=== PATIENT | female | born 1965 | race Caucasian/White ===

== ENCOUNTER 2017-11-29 01:35 | Emergency (ER) | payer OTHER, SELFPAY ==
[2017-11-29 01:36] VITALS: BP 150/76; PULSE 61; RESP 17; TEMP 36.4; O2SAT 98; BMI 29.2
[2017-11-29] MEDS: HYDROcodone Bitartrate/Apap 5/325 Tablet PO (01:52)
--- NOTE | 2017-11-29 01:58 | RAD_ITS ---
STUDY: X-RAY - CERVICAL SPINE REASON FOR EXAM: Female, 52 years old. Neck pain TECHNIQUE: 4 view(s) of the cervical spine were obtained. COMPARISON: None FINDINGS: Normal anterior atlantoaxial articulation. Normal odontoid process. Normal cervical lordosis. There is postoperative change from C6 to C7 anterior spinal fusion with anterior fixation plate and intrabody bone screws in place. No vertebral body or posterior element fracture. There is mild to moderate nonuniform joint space narrowing of bilateral uncovertebral joints from C3 through through C6. Mild loss of height at the C5-C6 intervertebral disc space. RAD/Cerv Spine 2 or 3 Views IMPRESSION: 1. Mild degenerative disc and mild to moderate degenerative joint disease of the cervical spine. 2. Postoperative change from C6 to C7 anterior spinal fusion. Electronically Signed: Luis Reddy MD at 3:08 EST Tel , Service support ,
--- NOTE | 2017-11-29 03:20 | ED.DCSUM_ITS ---
- ER Visit Summary Date of Service: 11/29/17 Chief Complaint: Neck pain History of Present Illness: The patient is a 52 F with diffuse neck pain for several weeks. The patient felt a snap in her neck today. This was concerning to her. She has a history of neck pain and had a prior cervical fusion. She is planning to have an outpatient MRI. Her only other associated symptom is finger numbness bilaterally. This is not a new finding for her. She denies fever or any other symptoms. Denies any injury. Physical Examination: Patient is afebrile and vital signs are unremarkable. She has diffuse cervical tenderness to palpation. Skin appears normal. No warmth or erythema. Arms have good pulses. She does report subjective paresthesias in her hands. Good strength and range of motion. Test Results: X-rays unremarkable. Emergency Department Course and Treatment: Patient had pain medicine and muscle relaxers. X-rays unremarkable. She will be discharged with a short course of pain medicine. Follow-up with her doctor and have her imaging as scheduled. Treatment Plan: As above Disposition: Discharged Impression: 1. Neck pain This note was generated with [employer] dictation software. It may contain incorrect words, spelling, and punctuation that were not noted in review of the chart prior to signing ED Disposition - Plan for ED Patient: Chief Complaint: Other, Pain/Inj Referrals: Surinder Richardson [Primary Care Provider] -
--- NOTE | 2017-11-29 03:20 | ED.DEP ---
ED Disposition - Plan for ED Patient: Chief Complaint: Other, Pain/Inj Instructions: ED Neck Pain No Trauma Prescriptions: Hydrocodone Bitart/Apap 5-325 [[place] 5/325] 1 tab PO Q6H PRN PRN 3 Days #12 tab PRN Reason: Pain Referrals: Surinder Richardson [Primary Care Provider] -
[2017-11-29 03:36] VITALS: BP 142/60; PULSE 72; RESP 16
== END 2017-11-29 03:37 | disposition home or self-care (01) ==
PROVIDERS: Emergency Provider Emergency Medicine
DX: M54.2 Cervicalgia (principal); R20.0 Anesthesia of skin; R20.2 Paresthesia of skin; Z98.1 Arthrodesis status; Z87.39 Personal history of other diseases of the musculoskeletal system and connective tissue; Z90.89 Acquired absence of other organs; Z90.710 Acquired absence of both cervix and uterus; Z79.84 Long term (current) use of oral hypoglycemic drugs; Z79.899 Other long term (current) drug therapy; Z72.0 Tobacco use
CPT/HCPCS: 72040; 99283

== ENCOUNTER → 2017-12-09 10:07 | Outpatient (CLI) | payer OTHER, SELFPAY ==
--- NOTE | 2017-12-09 10:15 | MRI_ITS ---
STUDY: MRI CERVICAL SPINE WITH AND WITHOUT CONTRAST REASON FOR EXAM: Female, 52 years old. Neck pain with tingling in the right fingers and arm for 3 months. History of cervical surgery on May 04, 2017 TECHNIQUE: Standardized fat and water weighted pulse sequences were obtained in the sagittal and axial following I.V. administration of 7 ml of Gadavist contrast material. COMPARISON: MRI of the cervical spine on May 06, 2017 FINDINGS: Normal foramen magnum and brainstem-cervical cord junction. Normal craniovertebral junction. Normal anterior atlantoaxial articulation. Normal odontoid process. There is straightening of the normal cervical lordosis. Normal vertebral bodies and posterior osseous elements. C2-3: Normal endplates. Normal disc height, signal and morphology. Normal central canal and intervertebral neural foramina. C3-4: Normal endplates. Normal disc height, signal and morphology. Normal central canal and intervertebral neural foramina. C4-5: Normal endplates. There is an annular bulge. There is minimal anterolisthesis. Normal central canal and intervertebral neural foramina. C5-6: Normal endplates. Normal disc height, signal and morphology. Normal central canal and intervertebral neural foramina. C6-7: Status post anterior fusion since the last examination. Normal central canal and intervertebral neural foramina. C7-T1: Normal endplates. Normal disc height, signal and morphology. Normal central canal and intervertebral neural foramina. Normal cervical cord. Normal visualized soft tissue structures. MRI/Spine Cervical W/WO Contrast IMPRESSION: C4-5 annular bulge with minimal anterolisthesis unchanged since last examination. Status post anterior fusion at C6-7 since the last examination, uncomplicated Electronically Signed: Bhaskar Encarnacion MD, FACR at 11:52 EST , Service support ,
== END ==
DX: M50.20 Other cervical disc displacement, unspecified cervical region (principal)
CPT/HCPCS: 72156; A9585

== ENCOUNTER 2018-02-09 19:32 | Emergency (ER) | payer OTHER, SELFPAY ==
[2018-02-09 19:33] VITALS: BP 134/72; PULSE 57; RESP 18; TEMP 36.7; O2SAT 95; BMI 31.5
--- NOTE | 2018-02-09 19:44 | NURSING ---
CALLED [facility] @ 320
--- NOTE | 2018-02-09 20:34 | RAD_ITS ---
STUDY: X-RAY - CERVICAL SPINE REASON FOR EXAM: Female, 52 years old. Pain. Trauma. TECHNIQUE: 3 view(s) of the cervical spine were obtained. COMPARISON: None FINDINGS: Normal anterior atlantoaxial articulation. Normal odontoid process. Normal cervical lordosis. Previous surgical fixation between C6 and C7. Satisfactory appearance of an anterior buttress plate. Otherwise disc space heights. The soft tissue structures are unremarkable. There is no demonstrated fracture of the cervical spine. RAD/Cerv Spine 2 or 3 Views IMPRESSION: Postsurgical changes and no acute abnormality. Electronically Signed: Joe Berumen MD at 21:10 EDT , Service support ,
[2018-02-09] MEDS: oxyCODONE 5 MG Tablet PO (20:39)
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
[2018-02-09 21:44] VITALS: RESP 16
[2018-02-09 21:48] VITALS: BP 134/71; PULSE 56; RESP 14; O2SAT 95
--- NOTE | 2018-02-09 21:51 | ED.RN ---
REVIEWED D/C INSTRUCTIONS, FOLLOW UP CARE, AND S/S THAT WOULD WARRANT A RETURN TO THE ED WITH PT. PT VERBALIZED AN UNDERSTANDING AND DENIES FURTHER QUESTIONS FOR THIS RN. PT SKIN P/W/D, RESP EVEN AND UNLABORED, PT A&O X 3, NO DISTRESS NOTED. PT AMBULATED OUT OF ED, GAIT STEADY.
== END 2018-02-09 21:52 | disposition home or self-care (01) ==
PROVIDERS: Emergency Provider Emergency Medicine
DX: S10.93XA Contusion of unspecified part of neck, initial encounter (principal); R20.2 Paresthesia of skin; W50.0XXA Accidental hit or strike by another person, initial encounter; Y93.9 Activity, unspecified; Y92.9 Unspecified place or not applicable; E11.9 Type 2 diabetes mellitus without complications; E78.00 Pure hypercholesterolemia, unspecified; Z90.89 Acquired absence of other organs; Z90.710 Acquired absence of both cervix and uterus; Z79.84 Long term (current) use of oral hypoglycemic drugs; Z79.899 Other long term (current) drug therapy; Z72.0 Tobacco use
CPT/HCPCS: 72040; 99284; A4216

== ENCOUNTER → 2018-08-13 07:42 | Emergency (ER) | payer OTHER, SELFPAY ==
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
== END ==
DX: Z53.21 Procedure and treatment not carried out due to patient leaving prior to being seen by health care provider (principal)
CPT/HCPCS: A4216

== ENCOUNTER 2019-02-14 01:43 | Emergency (ER) | payer MEDICAID, SELFPAY ==
[2019-02-14 01:43] VITALS: BMI 29.2
[2019-02-14 01:44] VITALS: BP 163/74; PULSE 57; RESP 16; TEMP 36.5; O2SAT 99; BMI 24.7
--- NOTE | 2019-02-14 02:47 | ED.VISSUMM ---
- ER Visit Summary Date of Service: 02/14/19 Chief Complaint: Back pain History of Present Illness: The patient is a 53 F who presents with back pain. It is been present since yesterday. She does have a history of prior neck surgery. She does not normally have lower back pain. She cannot identify any fall or traumatic injury. She denies any numbness tingling radiation to the legs. No fevers or abdominal pain. No urinary retention or fecal incontinence. No weakness. Physical Examination: Afebrile vitals normal except blood pressure 163/74 Heart regular rate No respiratory distress Abdomen soft Patient has paraspinal lumbar tenderness Negative straight leg raise bilaterally 2+ dorsalis pedis pulses Brisk capillary refill 5 out of 5 dorsiflexion, plantarflexion, extensor hallucis longus Test Results: Not indicated Emergency Department Course and Treatment: Presentation consistent with lumbosacral strain. She was given a [place] here as well as a prescription for short course of the same. She was also given a prescription for naproxen. She was discharged to follow-up as an outpatient. Treatment Plan: [] Disposition: Discharge Impression: Lumbosacral strain This note was generated with [employer] dictation software. It may contain incorrect words, spelling, and punctuation that were not noted in review of the chart prior to signing ED Disposition - Plan for ED Patient: Referrals: Surinder Richardson MD [Primary Care Provider] -
--- NOTE | 2019-02-14 02:49 | ED.DEP ---
ED Disposition - Plan for ED Patient: Instructions: ED Sprain Strain Lumbar Prescriptions: Hydrocodone Bitart/Apap 5-325 [[place] 5MG-325MG] 1 tab PO Q6H PRN PRN 3 Days #10 tab PRN Reason: Pain Naproxen [Naprosyn] 500 mg PO BID #20 tab Referrals: Surinder Richardson MD [Primary Care Provider] -
[2019-02-14] MEDS: HYDROcodone Bitartrate/Apap 5/325 Tablet PO (03:03)
== END 2019-02-14 03:07 | disposition home or self-care (01) ==
PROVIDERS: Emergency Provider Emergency Medicine
DX: S39.012A Strain of muscle, fascia and tendon of lower back, initial encounter (principal); X58.XXXA Exposure to other specified factors, initial encounter; Y93.9 Activity, unspecified; Y92.9 Unspecified place or not applicable; E11.9 Type 2 diabetes mellitus without complications; I10 Essential (primary) hypertension; Z79.84 Long term (current) use of oral hypoglycemic drugs; Z79.899 Other long term (current) drug therapy; Z72.0 Tobacco use
CPT/HCPCS: 99283

== ENCOUNTER → 2020-01-19 10:01 | Outpatient (CLI) | payer MEDICAID, SELFPAY ==
--- NOTE | 2020-01-19 10:04 | US_ITS ---
STUDY: ABDOMINAL ULTRASOUND - RIGHT UPPER QUADRANT REASON FOR VISIT: Female, 54 years old RUQ PAIN TECHNIQUE: Ultrasound evaluation of the right upper quadrant was performed with real-time and static montelongo-scale imaging. TECHNICAL QUALITY: Adequate. COMPARISON: None. FINDINGS: Liver: The liver measures 14.4 cm. There is increased echogenicity consistent with fatty infiltration. The bile ducts are within normal limits. There is hepatic color flow. The direction of portal flow is hepatopetal. There is no demonstrated mass lesion. Gallbladder: Normal distended gallbladder. The gallbladder wall measures 1.7 mm. There is a negative sonographic Saeed''s sign. There is no pericholecystic fluid. There are no gallstones. Common Bile Duct (C.B.D.): The common bile duct measures 5.2 mm. Pancreas: Normal size of the head, body and tail of the pancreas. There is normal echogenicity of the pancreas. There is no demonstrated pancreatic mass or cyst. Right Kidney: Normal size of the right kidney. The right kidney measures 11.2 cm x 5.5 cm x 3.9 cm. Normal renal cortex. The right cortex measures 1.2 cm. There is no demonstrated renal mass or cyst. There is no right hydronephrosis. US/Abdomen Limited IMPRESSION: Fatty infiltration of the liver. Electronically Signed: Adán Abdi, at 10:54 EDT , Service support ,
== END ==
DX: R10.11 Right upper quadrant pain (principal)
CPT/HCPCS: 76705

== ENCOUNTER 2023-08-19 11:20 | Emergency (ER) | payer OTHER, SELFPAY ==
[2023-08-19 11:21] VITALS: TEMP 36.3; BMI 23.7
[2023-08-19 11:25] VITALS: BP 135/105; PULSE 57; RESP 16; O2SAT 97
--- NOTE | 2023-08-19 11:43 | RAD_ITS ---
STUDY: X-RAY CHEST REASON FOR EXAM: Female, 58 years old. Weakness TECHNIQUE: PA and lateral views of the chest. COMPARISON: 05/06/2017 FINDINGS: EKG leads overlie the chest The lungs are clear and expanded. There is no demonstrated pleural abnormality. Normal size heart. Normal mediastinum and loren. Normal visualized pulmonary arteries. Normal visualized aortic arch and descending thoracic aorta. Normal visualized thoracic spine. Normal visualized ribs, clavicles, and shoulders. There is no demonstrated abnormality of the visualized soft tissue structures of the upper abdomen. RAD/Chest PA and Lateral IMPRESSION: No acute pulmonary process Electronically Signed: Yonathan Sharma MD at 12:55 EDT ,
--- NOTE | 2023-08-19 11:44 | EDS_ITS ---
HPI History of Present Illness Chief Complaint: Fatigue Informant: patient and EMS Narrative Narrative: Patient states she has felt fatigued for the last week or so. Gradual in onset. She is a type II diabetic, she has been checking her blood sugar off-and-on, y esterday at work it was in the 50s and she got something to eat or drink and went home. Today she feels no different but it was 290, then she ate and it was in the 300s so her called EMS and brought her to the hospital. She states here it is lower in the 200s. She is not on insulin. She denies any other symptoms such as polyuria polydipsia, dysuria, abdominal symptoms, her appetite has been low but she is able to eat and drink without difficulty and urinating normally. No cough, earache, sore throat, or other symptoms of illness, no fevers or chills. [facility] Medical History Type 2 diabetes mellitus Home Medications metformin 500 mg tablet 500 mg PO BID ANTIDIABETIC 03/07/15 [History Last Taken 05/05/17] metoprolol succinate 50 mg tablet,extended release 24 hr 50 mg PO DAILY HEART RHYTHM 03/07/15 [History Last Taken 05/05/17] sertraline 100 mg tablet 100 mg PO DAILY ANXIETY 03/07/15 [History Last Taken 05/05/17] fenofibrate nanocrystallized 48 mg tablet 43 mg PO DAILY CHOLESTEROL 05/06/17 [History Last Taken 05/05/17] naproxen 500 mg tablet 500 mg PO BID #20 tabs 02/14/19 [Rx Last Taken Unknown] buspirone 5 mg tablet 5 mg PO DAILY 08/19/23 [History Last Taken Unknown] sulfamethoxazole 800 mg-trimethoprim 160 mg tablet 1 tab PO BID #14 TABLETS 08/19/23 [Rx Last Taken Unknown] Allergy/AdvReac Type Severity Reaction Status Date / Time No Known Allergies Allergy Verified 08/19/23 11:21 Social History Smoking Status: Current every day smoker tobacco type: cigarettes ROS ROS ED Constitutional Constitutional ED: Reports fatigue; Denies chills or fever(s) Eyes Eyes: Denies change in vision or diplopia ENT ENT ED: Denies rhinorrhea or sore throat Cardiovascular Cardiovascular: Denies chest pain or palpitations Respiratory/Chest Respiratory/Chest: Denies cough or dyspnea Gastrointestinal Gastrointestinal: Denies abdominal pain, diarrhea, nausea or vomiting Genitourinary Genitourinary ED: Denies dysuria or hematuria Musculoskeletal Musculoskeletal: Denies back pain or neck pain Integumentary Denies abscess or rash Neurologic Neurologic: Denies headache(s), paresthesias or weakness Psychiatric Psychiatric: Denies anxiety or suicidal thoughts EXAM Physical Exam Const Vital Signs: 08/19/23 11:21 08/19/23 11:25 08/19/23 11:25 Temperature 97.4 F L Temperature Source Oral Pulse Rate 57 L Respiratory Rate 16 Respiratory Effort Normal Non-Labored Respiratory Pattern Normal Blood Pressure 135/105 H Blood Pressure Mean 115 Pulse Ox 97 Oxygen Delivery Method Room Air 08/19/23 13:09 Temperature Temperature Source Pulse Rate 50 L Respiratory Rate 16 Respiratory Effort Respiratory Pattern Blood Pressure 139/71 H Blood Pressure Mean 93 Pulse Ox 95 Oxygen Delivery Method Room Air Positive well nourished and well developed General Appearance ED: well developed and NAD HEENT Reports moist mucous membranes normocephalic and atraumatic Eyes PERRL and EOMs intact bilaterally Neck full ROM and supple Resp normal respiratory effort and clear to auscultation bilaterally Resp Narrative: Diminished throughout symmetrically trachea midline no respiratory distress speaking in full sentences Cardio regular rate, regular rhythm and no murmurs GI non-tender and non-distended Auscultation: normoactive bowel sounds Palpation: soft Back/Spine no CVA tenderness General Back: other FROM Extremity normal to inspection General Extremety ED: Negative for edema, pulses abnormal or tenderness General Extremity: Negative for edema or pulses abnormal Neuro oriented x3, CN's II-XII intact bilaterally and no sensory deficits noted Sensorium / Orientation: awake and alert Motor Exam: strength 5/5 throughout Skin no rashes or lesions noted and no wounds MDM MDM MDM Narrative Medical decision making narrative: Infections, dehydration, electrolyte abnormalities, cardiac etiologies on the differential diagnosis. Her rhythm is sinus on the monitor, for treatment, checking her blood sugar is now 126 that we held off on insulin. Chest x-ray 2 views normal in my interpretation radiology in agreement. Swab for COVID negat luis. Blood counts look good, your potassium was 3.4 which is just barely low, not low enough to explain all the symptoms, and her urine shows suggestion of possible infection with bacteriuria. Sent that for culture we will start her on Bactrim, she wants to go home. came and provided additional history that she works 64 hours last week and she has been working an extraordinary amount so far this week and he is asking for her to get a work note for yesterday, today, and for a couple days in the future, she is shaking her head saying that she does not want to miss work, medically I am certainly okay with her going to work if she wants to, but working 60 or more hours per week could certainly be the explanation for her feeling tired. Lab Data Attestation: I reviewed the patient's lab results. Labs: Laboratory Results - last 24 hr 08/19/23 08/19/23 12:00 12:01 WBC 9.9 RBC 4.19 L Hgb 12.6 Hct 38.9 MCV 92.8 MCH 30.1 MCHC 32.4 RDW Std Deviation 43.7 RDW Coeff of Joselin 12.9 Plt Count 301 MPV 10.3 Immature Gran % (Auto) 0.300 Neut % (Auto) 55.0 Lymph % (Auto) 34.8 [place] % (Auto) 7.5 Eos % (Auto) 2.0 Baso % (Auto) 0.4 Absolute Neuts (auto) 5.5 Absolute Lymphs (auto) 3.46 Nucleated RBC % 0 Sodium 141 Potassium 3.4 L Chloride 110 H Carbon Dioxide 28.0 Anion Gap 3 L BUN 20 H Creatinine 0.71 Estim Creat Clear Calc 70.57 Est GFR (MDRD) Af Amer 109 Est GFR (MDRD) Non-Af 90 BUN/Creatinine Ratio 28.3 H Glucose 119 H Calcium 9.0 Troponin I High Sens 7 Urine Color Yellow Urine Clarity Sl. Cloudy Urine pH 6.5 Ur Specific [place] 1.015 Urine Protein 15 H Urine Glucose (UA) 100 H Urine Ketones 5 H Urine Occult Blood 250 H Urine Nitrite Negative Urine Bilirubin Negative Urine Urobilinogen Normal Ur Leukocyte Esterase 100 H Urine RBC 0 SEEN Urine WBC 10-25 SEEN Ur Squamous Epith Cells 0-5 SEEN Urine Bacteria 3+ Urine Mucus 0 SEEN POC Glucose 126 H Radiography Diagnostic Testing: Clinical Impression(s) from Imaging Studies Chest X-Ray 08/19/23 11:43 IMPRESSION: No acute pulmonary process Electronically Signed: Yonathan Sharma MD at 12:55 EDT , Rhythm Strip Rhythm Strip: Sinus Rhythm Rate: 50 Ectopy: None EKG Initial EKG: Attestation: I personally reviewed and interpreted this EKG as follows: Interpretation: Sinus Rhythm and No Acute Injury Pattern Prior EKG tracings: available for review Prior: Unchanged Discharge Plan Triage Chief Complaint: Fatigue ED Provider: Leno Limon Dx/Rx/DC Orders Clinical Impression: UTI (urinary tract infection), Fatigue, Hypokalemia, Hyperglycemia due to type 2 diabetes mellitus Instructions: UTIs Understanding, ED Hypokalemia, ED Weakness (Uncertain Cause) Prescriptions: New sulfamethoxazole-trimethoprim [sulfamethoxazole-trimethoprim] 800-160 mg tablet 1 tab PO BID Qty: 14 0RF No Action metformin 500 MG tablet 500 mg PO BID Patient Comments: DIABETES metoprolol succinate 50 MG tablet 50 mg PO DAILY Patient Comments: BLOOD PRESSURE sertraline 100 MG tablet 100 mg PO DAILY Patient Comments: DEPRESSION fenofibrate nanocrystallized 48 MG tablet 43 mg PO DAILY naproxen 500 MG tablet 500 mg PO BID Qty: 20 0RF buspirone 5 mg tablet 5 mg PO DAILY Stand Alone Forms: ED Work / School Excuse Primary Care Provider: Surinder Richardson Referrals: Surinder Richardson MD [Primary Care Provider] - 5-7 Days Disposition Disposition: Home, Self Care
[2023-08-19 12:15] LABS: Mucous, Urine 0 SEEN /hpf (<or=2+); Red Blood Cells-Urine 0 SEEN /hpf (0-5)
[2023-08-19 12:23] LABS: Absolute Lymphocyte Count 3.46 X10^3/uL (0.83-4.51); Absolute Neutrophil Count 5.5 X10^3/uL (2.0-7.7); Basophil# 0.04 X10^3/uL; Basophil% 0.4 % (0-1); Hematocrit 38.9 % (37-47); Hemoglobin 12.6 g/dL (12.0-15.0); Lymphocyte # 3.46 X10^3/ul (0.83-4.51); Lymphocyte % 34.8 % (19-41); Mean Corp Hgb Conc 32.4 g/dL (32-36); Mean Corpuscular Hgb 30.1 pg (27.0-32.0); Mean Corpuscular Volume 92.8 fL (81-99); Mean Platelet Vol. 10.3 fl (6.2-12.0); Monocyte# 0.74 X10^3/uL; Monocyte% 7.5 % (0-10); NRBC Flagged by Analyzer 0 % (0-5); Neutrophil # 5.46 X10^3/uL (2.7-7.7); Platelet Count 301 K/mm3 (150-450); RBC Distribution Width CV 12.9 % (11.6-14.6); RBC Distribution Width SD 43.7 fl (35.1-43.9); Red Blood Count 4.19 M/mm3 (4.2-5.4); White Blood Count 9.9 K/mm3 (4.4-11.0)
[2023-08-19 12:24] LABS: Bedside Glucose 126 mg/dL (74-106)
[2023-08-19 12:36] LABS: Anion Gap 3 (5-15); BUN 20 mg/dL (7-18); BUN/Creat Ratio 28.3 RATIO (10-20); Chloride 110 mmol/L (98-107); Creatinine, Serum 0.71 mg/dL (0.55-1.02); EST Glomerular Filtration Rate 90 mL/min (>60); Est Glom Filt Rate - Afr Amer 109 mL/min (>60); Estimated Creatinine Clearance 70.57 ml/min; Glucose 119 mg/dL (74-106); Potassium 3.4 mmol/L (3.5-5.1); Sodium Level 141 mmol/L (136-145); Troponin-I HS 7 pg/mL (3.0-54.0)
[2023-08-19 12:41] LABS: Color, Urine Yellow (Yellow); Glucose, Dipstick 100 mg/dl (Normal); Ketone-Dipstick 5 mg/dl (Negative); Leukocyte Esterase-Dipstick 100 /ul (Negative); Nitrite-Dipstick Negative (Negative); Occult Blood-Urine 250 /ul (Negative); Protein-Dipstick 15 mg/dl (Negative); Specific Gravity, Urine 1.015 (1.002-1.030); Urine Bilirubin Dipstick Negative (Negative); Urine Clarity Sl. Cloudy (Clear); Urine Urobilinogen Normal (Normal); Urine pH 6.5 (5.0 - 8.0)
[2023-08-19 12:47] LABS: White Blood Cells 10-25 SEEN /hpf (0-5)
[2023-08-19 12:48] LABS: Bacteria 3+ /hpf (None Seen); Squamous Epithelial Cells - UA 0-5 SEEN /hpf (5-10)
--- NOTE | 2023-08-19 13:08 | ED.RN ---
was given 1 L NS per EMS.
[2023-08-19 13:09] VITALS: BP 139/71; PULSE 50; RESP 16; O2SAT 95
[2023-08-19] MEDS: Potassium Chloride Oral Tablet 20 MEQ 40 MEQ PO (14:01)
[2023-08-19] MEDS: Smz/Tmp Ds Tablet 1 TABLET PO (14:01)
== END 2023-08-19 14:05 | disposition home or self-care (01) ==
PROVIDERS: Emergency Provider Emergency Medicine; Visit Provider Emergency Medicine
DX: N39.0 Urinary tract infection, site not specified (principal); E11.65 Type 2 diabetes mellitus with hyperglycemia; E87.6 Hypokalemia; F17.210 Nicotine dependence, cigarettes, uncomplicated; E86.0 Dehydration; R53.83 Other fatigue
CPT/HCPCS: 71046; 80048; 81001; 82962; 84484; 85025; 87077; 87086; 87088; 87186; 87428; 93005; 96372; 99285; A4216